=== PATIENT | male | born 1955 | race Caucasian/White ===

== ENCOUNTER → 2021-03-25 | Day surgery (SDC) | payer OTHER | END | disposition home or self-care (01) | LOC: MSO 07:12 | DX: Z12.11 Encounter for screening for malignant neoplasm of colon (principal); D12.2 Benign neoplasm of ascending colon; K62.1 Rectal polyp; K57.30 Diverticulosis of large intestine without perforation or abscess without bleeding; G47.33 Obstructive sleep apnea (adult) (pediatric); K21.9 Gastro-esophageal reflux disease without esophagitis; Z99.89 Dependence on other enabling machines and devices; Z79.899 Other long term (current) drug therapy; Z80.0 Family history of malignant neoplasm of digestive organs | CPT/HCPCS: 00811; J2704; J3010; J7120 ==